=== PATIENT | female | born 1935 | race Caucasian/White ===

== ENCOUNTER 2016-05-13 13:15 | Observation (INO) | payer MEDICARE ==
[2016-05-13] VITALS (9 sets, daily range): BP systolic 109–198; BP diastolic 60–95; PULSE 65–90; RESP 17–18; TEMP 97.8–98.1; O2SAT 94–97
[~2016-05-13] VITALS: Ht 167.6 cm; Wt 75.0 kg
[~2016-05-13 13:15] MED LIST: ASPI81TA82 PO; ATOR80TA PO; CARV3.12 PO; CLOP75 PO; NITR.4 SL; OMEP20TA39 PO
[2016-05-13] MEDS ORDERED: ASPIRIN 81 MG CHEW TAB PO ONE (13:45)
[2016-05-13] MEDS ORDERED: SODIUM CHLORIDE 0.9% FLUSH 10 ML FLUSH IVF PRN (13:45)
--- NOTE | 2016-05-13 14:00 | PD ---
HPI Chief Complaint: Chest Pain Time Seen by Provider: 13:25 Travel History International Travel<30 days: No Contact w/Intl Traveler<30days: No Traveled to known affect area: No History of Present Illness HPI This is a 80-year-old female history of hypertension, coronary artery disease, hyperlipidemia, who presents today with 2 episodes of chest pain. Patient states that today she was helping her demented ties shoes when she experienced a substernal achy pressure-like sensation. She stated lasted very briefly. She states that she then went to the store she experienced another episode. She states she took 2 nitroglycerin which immediately resolved the pain. She reported nausea. No diaphoresis but she has been more sweaty than normal. She denies any shortness of breath. She does report that the pain was achy and across her precordium with radiation under her rib cages bilaterally. PFSH Past Medical History AAA: Yes (3.8 CM?) Arthritis: Yes (OSTEOARTHRITIS) Heart Rhythm Problems: Yes (occassional PVC's ) Cardiac Catheterization: Yes Cardiovascular Problems: Yes (BYPASS, STENTS) High Cholesterol: Yes Chest Pain: Yes (STABLE AND UNSTABLE) Congestive Heart Failure: No Cerebrovascular Accident: Yes (TIA X1) Coronary Artery Disease: Yes Diabetes: No GERD: Yes Heparin Induced Thrombocytopen: No Hypertension: Yes ?: Not Menopausal: Yes : 9 Para: 6 Miscarriage: 3 Dilation and Curettage (D&C): Yes Past Surgical History Cardiac Surgery: Yes Coronary Artery Bypass Graft: Yes (2003) Coronary Stent: Yes (STENTS: 2006, 2008, 2009, 2016 (X4 TOTAL)) Eye Surgery: Yes (BILATERAL CATARACTS) Genitourinary Surgery: Yes (BLADDER RECTOCELE REPAIR) Hysterectomy: Yes (PARTIAL) Joint Replacement: Yes (PARTIAL BILATERAL KNEE REPLACEMENTS 2002) Family History Family Myocardial Infarction: No Social History Alcohol Use: No Tobacco Use: No Substance Use: No Allergies-Medications (Allergen,Severity, Reaction): Coded Allergies: Tylenol (Verified Allergy, Severe, Hypertension, 05/15/15) Reported Meds & Prescriptions Reported Meds & Active Scripts Active Reported Omeprazole 20 Mg Tab 20 Mg PO DAILY Nitrostat SL (Nitroglycerin) 0.4 Mg Subl 0.4 Mg SL DIRECTED PRN 1 tablet under the tongue as needed for chest pain. Repeat every 5 minutes for a total of 3 DOSES or call 911 if NO relief. Plavix (Clopidogrel Bisulfate) 75 Mg Tab 75 Mg PO DAILY Coreg (Carvedilol) 3.125 Mg Tab 3.125 Mg PO BID Atorvastatin (Atorvastatin Calcium) 80 Mg Tab 80 Mg PO HS Aspirin Adult Low Strength (Aspirin) 81 Mg Tabdr 81 Mg PO DAILY Review of Systems Except as stated in HPI: all other systems reviewed are Neg General / Constitutional: No: Fever, Chills Eyes: No: Blurred Vision, Photophobia HENT: No: Headaches, Vertigo Cardiovascular: Positive: Chest Pain or Discomfort, No: Palpitations, Irregular Rhythm Gastrointestinal: Positive: Nausea, No: Vomiting, Abdominal Pain Musculoskeletal: Positive: Pain (under her rib cage bilaterally.), No: Weakness Neurologic: No: Weakness, Headache, Change in Mentation Physical Exam Narrative GENERAL: Well-nourished, well-developed patient. SKIN: Focused skin assessment warm/dry. HEAD: Normocephalic/atraumatic. EYES: No scleral icterus. No injection or drainage. NECK: Supple, trachea midline. CARDIOVASCULAR: Regular rate and rhythm without murmurs, gallops, or rubs. RESPIRATORY: Breath sounds equal bilaterally. No accessory muscle use. GASTROINTESTINAL: Abdomen soft, non-tender, nondistended. MUSCULOSKELETAL: No cyanosis, or edema. NEUROLOGICAL: Awake and alert. Cranial nerves II through XII intact. Motor grossly within normal limits. Five out of 5 muscle strength in all muscle groups. Normal speech. Data Data Last Documented VS Vital Signs Date Time Temp Pulse Resp B/P Pulse Ox O2 Delivery O2 Flow Rate FiO2 05/13/16 13:37 98 Nasal Cannula 2 05/13/16 13:37 78 172/79 151/81 05/13/16 13:37 18 05/13/16 13:16 97.8 Orders Electrocardiogram (05/13/16 ) Basic Metabolic Panel (Bmp) (05/13/16 13:33) Ckmb (Isoenzyme) Profile (05/13/16 13:33) Complete Blood Count With Diff (05/13/16 13:33) Magnesium (Mg) (05/13/16 13:33) Prothrombin Time / Inr (Pt) (05/13/16 13:33) Act Partial Throm Time (Ptt) (05/13/16 13:33) Troponin I (05/13/16 13:33) Chest, Single Ap (05/13/16 13:33) Ecg Monitoring (05/13/16 13:33) Bilateral Bp Monitoring (05/13/16 13:33) Iv Access Insert/Monitor (05/13/16 13:33) Oximetry (05/13/16 13:33) Oxygen Administration (05/13/16 13:33) Aspirin Chew (Aspirin Chew) (05/13/16 13:45) Sodium Chloride 0.9% Flush (Ns Flush) (05/13/16 13:45) CKMB (05/13/16 13:48) CKMB% (05/13/16 13:48) Admit Order (Ed Use Only) (05/13/16 15:15) Labs Laboratory Tests Test 05/13/16 13:48 White Blood Count 6.8 TH/MM3 Red Blood Count 4.74 MIL/MM3 Hemoglobin 14.4 GM/DL Hematocrit 41.5 % Mean Corpuscular Volume 87.6 FL Mean Corpuscular Hemoglobin 30.4 PG Mean Corpuscular Hemoglobin 34.7 % Concent Red Cell Distribution Width 13.4 % Platelet Count 207 TH/MM3 Mean Platelet Volume 7.7 FL Neutrophils (%) (Auto) 54.0 % Lymphocytes (%) (Auto) 31.0 % Monocytes (%) (Auto) 10.7 % Eosinophils (%) (Auto) 3.4 % Basophils (%) (Auto) 0.9 % Neutrophils # (Auto) 3.7 TH/MM3 Lymphocytes # (Auto) 2.1 TH/MM3 Monocytes # (Auto) 0.7 TH/MM3 Eosinophils # (Auto) 0.2 TH/MM3 Basophils # (Auto) 0.1 TH/MM3 CBC Comment DIFF FINAL Differential Comment Prothrombin Time 10.6 SEC Prothromb Time International 1.0 RATIO Ratio Activated Partial 23.6 SEC Thromboplast Time Sodium Level 139 MEQ/L Potassium Level 4.4 MEQ/L Chloride Level 107 MEQ/L Carbon Dioxide Level 26.4 MEQ/L Anion Gap 6 MEQ/L Blood Urea Nitrogen 21 MG/DL Creatinine 0.99 MG/DL Estimat Glomerular Filtration 54 ML/MIN Rate Random Glucose 98 MG/DL Calcium Level 9.3 MG/DL Magnesium Level 2.1 MG/DL Total Creatine Kinase 126 U/L Creatine Kinase MB 1.9 NG/ML Troponin I LESS THAN 0.02 NG/ML [facility] Medical Decision Making Medical Screen Exam Complete: Yes Emergency Medical Condition: Yes Differential Diagnosis ACS versus muscle skeletal pain versus peptic ulcer disease Narrative Course This is an 80-year-old female history coronary artery disease, hypertension, hyperlipidemia, who presents with 2 episodes of chest pain. She had an episode earlier when she was tying her husbands shoes. She states that she didn't make much of that however when she was at the store she had a second episode. She states that it persisted for longer than the first and she used 2 nitroglycerin to resolve her pain. EKG shows no acute ST elevation or depression. Cardiac enzymes are within normal limits. Given her history and her use of nitroglycerin, she will be admitted to the chest pain center for rule out protocol. She does see Dr. 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 Diagnosis Primary Impression: Chest pain Additional Impressions: Hypertension Hyperlipidemia Coronary artery disease Seamus Kelsey MD May 13, 2016 13:59
[2016-05-13 14:02] LABS: AUTOMATED NEUTROPHIL # 3.7 TH/MM3 (1.8-7.7); BASOPHIL # 0.1 TH/MM3 (0-0.2); BASOPHIL % 0.9 % (0.0-2.0); EOSINOPHIL # 0.2 TH/MM3 (0-0.4); EOSINOPHIL % 3.4 % (0.0-4.0); HEMATOCRIT 41.5 % (35.0-46.0); HEMO FLAGS DIFF FINAL; LYMPHOCYTE # 2.1 TH/MM3 (1.0-4.8); MEAN CELL VOLUME 87.6 FL (80.0-100.0); MEAN CORPUSCULAR HEMOGLOBIN 30.4 PG (27.0-34.0); MEAN CORPUSCULAR HGB CONC 34.7 % (32.0-36.0); MONO % 10.7 % (0.0-8.0); PLATELET COUNT 207 TH/MM3 (150-450); RED BLOOD COUNT 4.74 MIL/MM3 (4.00-5.30); RED CELL DISTRIBUTION WIDTH 13.4 % (11.6-17.2); WHITE BLOOD COUNT 6.8 TH/MM3 (4.0-11.0)
[2016-05-13 14:14] LABS: APTT (PATIENT) 23.6 SEC (24.3-30.1); PROTHROMBIN TIME - PATIENT 10.6 SEC (9.8-11.6)
--- NOTE | 2016-05-13 14:19 | RADRPT ---
EXAM DATE/TIME: 05/13/2016 13:36 [facility] COMPARISON: CHEST SINGLE AP, May 15, 2015, 11:31. INDICATIONS : Chest pain, shortness of breath. MEDICAL HISTORY : Hypertension. Gastroesophageal reflux disease. SURGICAL HISTORY : CABG. Craniotomy. ENCOUNTER: Initial ACUITY: 1 day PAIN SCORE: 8/10 LOCATION: cranial midline FINDINGS: A single view of the chest demonstrates the lungs to be symmetrically aerated without evidence of mas s, infiltrate or effusion. The cardiomediastinal contours are unremarkable. Osseous structures are intact. Prior median sternotomy with 7 intact sternal wire sutures. CONCLUSION: The lungs are clear. Suman Haq MD on May 13, 2016 at 14:17 Board Certified Radiologist. This report was verified electronically.
[2016-05-13 14:23] LABS: CREATINE KINASE 126 U/L (26-192)
[2016-05-13 14:25] LABS: ANION GAP 6 MEQ/L (5-15); BICARBONATE 26.4 MEQ/L (21.0-32.0); BLOOD UREA NITROGEN 21 MG/DL (7-18); CHLORIDE 107 MEQ/L (98-107); GLOMERULAR FILTRATION RATE 54 ML/MIN (>89); MAGNESIUM 2.1 MG/DL (1.5-2.5); POTASSIUM 4.4 MEQ/L (3.5-5.1); SODIUM (NA) 139 MEQ/L (136-145)
[2016-05-13 14:35] LABS: CKMB 1.9 NG/ML (0.5-3.6)
[2016-05-13] MEDS ORDERED: NITR0.4S SL (15:41)
[2016-05-13] MEDS ORDERED: ASPI1TAB91 PO (15:41)
[2016-05-13] MEDS ORDERED: ATOR1TAB18 PO (15:41)
[2016-05-13] MEDS ORDERED: OMEP20TA PO (15:41)
[2016-05-13] MEDS ORDERED: PLAV75TA29 PO (15:41)
[2016-05-13] MEDS ORDERED: CARV3.125 PO (15:41)
[2016-05-13] MEDS ORDERED: SODIUM CHLORIDE 0.9% FLUSH 5 ML FLUSH IVF PRN (16:00)
[2016-05-13] MEDS ORDERED: ONDANSETRON HCL 4 MG/2 ML VIAL IV PRN (16:00)
--- NOTE | 2016-05-13 16:11 | HHI.HP ---
[facility] Primary Care Physician Sebastian Dang MD, PhD Chief Complaint Chest pain History of Present Illness This is a 80-year-old female history of CAD with a four-vessel bypass about 14 years ago as well as 4 stents since then, most recently March 2015 which time she had a stent to the LAD performed by her milker machine Dr. Syd Castle. She presents with a complaint of developing a sharp pain/pressure while bending over to tie her shoelaces. The symptoms last about 5 minutes. She was short of breath with them as well. She says ignored the symptoms and then later in the day went shopping with her . While doing some shopping she developed a severe stabbing discomfort in the center of her chest that made her short of breath. No nausea. A little bit diaphoresis. She then states that she has been sweating quite a bit over last few days which concerned her because that was the only symptom she had when she needed her bypass 14 years ago. She states the symptoms that she had today are not similar to the discomfort she had before when needing stenting. She also states that she has an abdominal aortic aneurysm which has been followed for a few years and was recently that she also had a thoracic aortic aneurysm but does not know where the imaging was done or who ordered imaging. She saw her milker machine last week for a checkup and was told to keep a journal of her vital signs as her blood pressures have been a little bit more difficult to control recently. Patient also is concerned of her . She states he has severe dementia and would not be comfortable with him being alone. Her daughter can stay with him tonight. She states that he will need to stay with her. Review of Systems General: Patient denies fevers, chills recent, and recent travel HEENT: Patient denies headache, sore throat, difficulty swallowing. Cardiovascular: She has had diaphoresis. Has the chest discomfort as mentioned above. Denies sensation of heart beating rapidly or irregularly. No syncope. Respiratory: Denies shortness of breath or inspirational chest discomfort. Denies coughing wheezing or hemoptysis. GI: Patient denies nausea, vomiting, diarrhea, abdominal pain, bloody stools. Musculoskeletal: Patient denies joint pain or edema. Denies calf pain or edema. Neurovascular: Patient denies numbness, tingling, weakness in extremities. Denies headache. Endocrine: Denies polyuria and polydipsia. Hematologic: Denies easy bruising. Skin: Denies rash or itching. Past Family Social History Allergies: Coded Allergies: Tylenol (Verified Allergy, Severe, Hypertension, 05/15/15) Past Medical History CAD. Hypertension, hyperlipidemia, history of abdominal and thoracic aortic aneurysm. Most recent scan on her records dated 05/15/15 state fusiform aneurysmal change of the descending thoracic aorta and infrarenal abdominal aorta measuring 4.6 and 4.1 cm respectively. Past Surgical History CABG. Cardiac catheterizations. Cataracts. Bilateral knees. Hysterectomy. Reported Medications Reported Meds & Active Scripts Active Reported Omeprazole 20 Mg Tab 20 Mg PO DAILY Nitrostat SL (Nitroglycerin) 0.4 Mg Subl 0.4 Mg SL DIRECTED PRN 1 tablet under the tongue as needed for chest pain. Repeat every 5 minutes for a total of 3 DOSES or call 911 if NO relief. Plavix (Clopidogrel Bisulfate) 75 Mg Tab 75 Mg PO DAILY Coreg (Carvedilol) 3.125 Mg Tab 3.125 Mg PO BID Atorvastatin (Atorvastatin Calcium) 80 Mg Tab 80 Mg PO HS Aspirin Adult Low Strength (Aspirin) 81 Mg Tabdr 81 Mg PO DAILY Active Ordered Medications Current Medications Medications (Trade) Dose Ordered Sig/Tonia Route Start Time Stop Time Status Last Admin (Lipitor) 80 mg HS PO 05/13/16 21:00 (Coreg) 3.125 mg BID PO 05/13/16 21:00 (Protonix) 20 mg DAILY PO 05/13/16 16:15 (NS Flush) 2 ml UNSCH PRN IVF 05/13/16 16:00 (NS Flush) 2 ml BID IVF 05/13/16 21:00 (Zofran Inj) 4 mg Q6H PRN IV 05/13/16 16:00 (Aspirin) 325 mg DAILY PO 05/14/16 09:00 Family History Family history of CAD. Social History Patient denies tobacco abuse, denies alcohol or illicit drug use. Physical Exam Vital Signs Vital Signs Date Time Temp Pulse Resp B/P Pulse Ox O2 Delivery O2 Flow Rate FiO2 05/13/16 13:37 98 Nasal Cannula 2 05/13/16 13:37 78 172/79 151/81 05/13/16 13:37 18 97 Nasal Cannula 2 05/13/16 13:33 76 18 Nasal Cannula 2 05/13/16 13:16 97.8 90 17 156/95 96 Physical Exam GENERAL: This is a well-nourished, well-developed patient, in no apparent distress. Patient speaks in clear complete sentences. Patient is pleasant. HEENT: Head is atraumatic and normocephalic. Neck is supple without lymphadenopathy and trachea is midline. No JVD or carotid bruits. CARDIOVASCULAR: Regular rate and rhythm without murmurs, gallops, or rubs. RESPIRATORY: Clear to auscultation. Breath sounds equal bilaterally. No wheezes , rales, or rhonchi. Chest wall is nontender. No use of accessory muscles. GASTROINTESTINAL: Abdomen is nontender, nondistended. Abdomen soft. No obvious pulsatile mass or bruit. No CVA tenderness. Strong femoral pulses bilaterally. Normal bowel sounds in all quadrants. MUSCULOSKELETAL: Patient is moving upper and lower extremities freely. No calf tenderness or edema, no Homans sign. Strong pulses in upper and lower extremities. NEUROLOGICAL: Patient is alert and oriented. Cranial nerves 2-12 are grossly intact. No focal deficits and speech is clear. SKIN: No rash and turgor is normal. Laboratory Laboratory Tests Test 05/13/16 13:48 White Blood Count 6.8 Red Blood Count 4.74 Hemoglobin 14.4 Hematocrit 41.5 Mean Corpuscular Volume 87.6 Mean Corpuscular Hemoglobin 30.4 Mean Corpuscular Hemoglobin 34.7 Concent Red Cell Distribution Width 13.4 Platelet Count 207 Mean Platelet Volume 7.7 Neutrophils (%) (Auto) 54.0 Lymphocytes (%) (Auto) 31.0 Monocytes (%) (Auto) 10.7 Eosinophils (%) (Auto) 3.4 Basophils (%) (Auto) 0.9 Neutrophils # (Auto) 3.7 Lymphocytes # (Auto) 2.1 Monocytes # (Auto) 0.7 Eosinophils # (Auto) 0.2 Basophils # (Auto) 0.1 CBC Comment DIFF FINAL Differential Comment Prothrombin Time 10.6 Prothromb Time International 1.0 Ratio Activated Partial 23.6 Thromboplast Time Sodium Level 139 Potassium Level 4.4 Chloride Level 107 Carbon Dioxide Level 26.4 Anion Gap 6 Blood Urea Nitrogen 21 Creatinine 0.99 Estimat Glomerular Filtration 54 Rate Random Glucose 98 Calcium Level 9.3 Magnesium Level 2.1 Total Creatine Kinase 126 Creatine Kinase MB 1.9 Troponin I LESS THAN 0.02 Result Diagram: 05/13/16 1348 05/13/16 1348 Assessment and Plan Assessment and Plan * Chest pain: Patient has history of CAD. She will continue to have serial cardiac enzymes and EKGs for ruling out purposes. She will be seen by Dr. Johnson of cardiology in the chest pain center in the morning. We will also get a CTA of the abdominal and thoracic aorta to evaluate her aneurysms. Further plan pending results of her CT imaging studies, labs, and Dr. Johnson's evaluation. * History of thoracic and abdominal aneurysms: We'll reassess with CT imagery. * Hypertension: Continue current medications and have Catapres when necessary. * Hyperlipidemia: Continue current medications. Patient is stable at this time. She is agreeable to this plan. Tayo Ng May 13, 2016 16:11
[2016-05-13] MEDS ORDERED: LISINOPRIL 5 MG TAB PO ONE (16:15)
[2016-05-13] MEDS ORDERED: cloNIDine HCL 0.1 MG TAB PO PRN (16:15)
[2016-05-13] MEDS ORDERED: IOHEXOL 350 MG/ML 10 ML VIAL (for RAD DIAG) IV ONE (16:47)
--- NOTE | 2016-05-13 17:20 | RADRPT ---
EXAM DATE/TIME: 05/13/2016 16:34 [facility] COMPARISON: CTA THORACIC ABDOMINAL AORTA W 3D RECON, May 15, 2015, 14:02. INDICATIONS : Chest pain today with history of multiple aneurysms; evaluate for dissection. IV CONTRAST: 75 cc Omnipaque 350 (iohexol) IV RADIATION DOSE: 7.68 CTDIvol (mGy) MEDICAL HISTORY : Hypertension. Aneurysm, abdominal. SURGICAL HISTORY : CABG Abdominal aortic aneurysm repair. ENCOUNTER: Initial ACUITY: 1 day PAIN SCALE: 6/10 LOCATION: chest TECHNIQUE: Volumetric scanning was performed using a multi-row detector CT scanner. The data was post processed with a variety of visualization algorithms including full volume maximum intensity projection, multi -planar sliding thin slab reformation, curved planar reformation, and surface rendering techniques. Using automated exposure control and adjustment of the mA and/or kV according to patient size, radiat ion dose was kept as low as reasonably achievable to obtain optimal diagnostic quality images. FINDINGS: LUNGS: There is no consolidation or pneumothorax. No concerning pulmonary nodule is visualized. No pleural fluid is present. Minimal dependent atelectatic changes on the right MEDIASTINUM: No abnormally enlarged lymph nodes by CT criteria. No axillary or hilar abnormalities are identified. Atherosclerotic calcification of the coronary arteries. 1.1 cm low density nodule in the right lobe of the thyroid, unchanged ABDOMEN: The liver and spleen are free of focal defects. The gallbladder and pancreas demonstrate no abnormali ty. The adrenal glands are normal. Bilateral renal cortical scarring. Diverticular disease of the toño cending and sigmoid colon without diverticulitis. Small paraumbilical hernia measures approximately 1 .5 cm in diameter and only contains fat. PELVIS: No evidence of free fluid or pelvic mass. No abnormally enlarged inguinal or retroperitoneal lymph no toño are present. The bladder is unremarkable. THORACIC AORTA: Stable aneurysm of the descending thoracic aorta measuring 4.7 x 3.8 cm. Bovine arch. Ascending thora cic aorta is normal in caliber. No dissection. ABDOMINAL AORTA: Infrarenal abdominal aortic aneurysm with mural thrombus measures 3.8 x 4.4 cm and is unchanged. PELVIC VESSELS: The internal iliac and external iliac vessels are patent without aneurysm or stenosis. CONCLUSION: 1. Stable aneurysms of the descending thoracic and infrarenal abdominal aorta as detailed above. Both measure approximately 4.5 cm in diameter. 2. No dissection. 3. Stable 1.1 cm hypodense nodule in the right lobe of the thyroid. 4. Diverticular disease of the sigmoid colon without diverticulitis. 5. Bovine arch. 6. Stable renal cortical scarring. Stable periumbilical hernia which only contains fat. Shravan Johnson MD on May 13, 2016 at 17:08 Board Certified Radiologist. This report was verified electronically.
[2016-05-13] MEDS: PANTOPRAZOLE SOD 20 MG DELAYED RELEASE TAB PO SCH (17:29)
[2016-05-13 17:49] LABS: CREATINE KINASE 99 U/L (26-192)
[2016-05-13] MEDS: CARVEDILOL 3.125 MG TAB PO SCH (20:06)
[2016-05-13] MEDS: SODIUM CHLORIDE 0.9% FLUSH 5 ML FLUSH IVF SCH (20:20)
[2016-05-13] MEDS ORDERED: ATORVASTATIN 80 MG TAB PO SCH (21:00)
[2016-05-13 21:36] LABS: CREATINE KINASE 96 U/L (26-192)
[2016-05-14 00:49] VITALS: BP 134/75; PULSE 71; RESP 19; TEMP 98; O2SAT 94
[2016-05-14 04:25] VITALS: BP 130/72; PULSE 70; RESP 19; TEMP 98; O2SAT 94
[2016-05-14 08:00] VITALS: BP 146/74; PULSE 69; RESP 20; TEMP 97.6; O2SAT 95
[2016-05-14] MEDS ORDERED: ASPIRIN 325 MG TAB PO SCH (09:00)
[2016-05-14] MEDS ORDERED: REGADENOSON INJ 0.4 MG/5 ML SYR ONE (09:44)
[2016-05-14] MEDS: SODIUM CHLORIDE 0.9% FLUSH 5 ML FLUSH IVF SCH (11:06)
[2016-05-14] MEDS: PANTOPRAZOLE SOD 20 MG DELAYED RELEASE TAB PO SCH (11:06)
[2016-05-14] MEDS: CARVEDILOL 3.125 MG TAB PO SCH (11:06)
--- NOTE | 2016-05-14 11:13 | RADRPT ---
EXAM DATE/TIME: 05/14/2016 09:25 [facility] COMPARISON: MYOCARDIAL PERF PHARM SPECT, GATED W/EF, May 16, 2015, 8:45. INDICATIONS : Mid chest pain for one day with shortness of breath. Angina. Coronary artery disease. DOSE: 25.4 mCi Tc99m Myoview at stress. 8.1 mCi Tc99m Myoview at rest. 0.4 mg Lexiscan STRESS SYMPTOMS: Chest tightness and nausea. EJECTION FRACTION: 70% MEDICAL HISTORY : Hypertension. SURGICAL HISTORY : CABG Coronary artery stent. Abdominal aortic aneurysm repair. ENCOUNTER: Initial ACUITY: 1 day PAIN SCALE: 7/10 LOCATION: Midsternal chest TECHNIQUE: The patient underwent pharmacologic stress with infusion of prescribed dose. Continuous ECG tracing was monitored during stress. Gated SPECT imaging was performed after stress and conventional SPECT i maging was performed at rest. The examination was performed on a SPECT/CT scanner, both attenuation and non-corrected datasets were reviewed. FINDINGS: DISTRIBUTION: The maximum perfused segment at stress is in the septal wall. PERFUSION STUDY: The pattern of perfusion at stress is within normal limits. GATED STUDY: There is intact wall motion and thickening without hypokinetic or dyskinetic segments. CONCLUSION: 1. No reversible perfusion defect to suggest stress-induced myocardial ischemia identified. RISK CATEGORY: Low (<1% Annual Mortality Rate) Elliott Tubbs MD on May 14, 2016 at 11:11 Board Certified Radiologist. This report was verified electronically.
--- NOTE | 2016-05-14 11:53 | HHI.DCPOC ---
Discharge Care Plan Diagnosis: (1) Atypical chest pain (2) Hx of coronary artery disease (3) Hypertension Goals to Promote Your Health * To prevent worsening of your condition and complications * To maintain your health at the optimal level Directions to Meet Your Goals Take your medications as prescribed Follow your dietary instruction Follow activity as directed Keep your appointments as scheduled Take your immunizations and boosters as scheduled If your symptoms worsen call your PCP, if no PCP go to Urgent Care Center or Emergency Room Smoking is Dangerous to Your Health. Avoid second hand smoke Call the 24-hour hour crisis hotline for domestic abuse at Carmen AndersonP May 14, 2016 11:53
[2016-05-14] MEDS ORDERED: LISI-519 PO (11:55)
[2016-05-14 12:00] VITALS: BP 146/72; PULSE 73; RESP 20; TEMP 97.8; O2SAT 92
--- NOTE | 2016-05-14 15:21 | TR ---
Date Performed: 05/14/2016 Time Performed: 09:56:41 DOCTOR: Cedrick Johnson DRUG LIST: CLINICAL HISTORY: CHEST PAIN REASON FOR TEST: CHEST PAIN REASON FOR ENDING: OBSERVATION: CONCLUSION: Lexiscan stress test was performed under standard four minute protocol. Radionuclid e was injected one minute prior to ending the test. No electrocardiographic abormalities were present to suggest ischemia. Nuclear imaging and interpretation are pending. COMMENTS:
--- NOTE | 2016-05-14 15:22 | EKG ---
Date Performed: 05/13/2016 Time Performed: 19:56:06 PTAGE: 80 years EKG: Sinus rhythm NONSPECIFIC T-WAVE ABNORMALITY BORDERLINE ECG PREVIOUS TRACING : 05/13/2016 16.26 Since previous tracing, no significant change noted DOCTOR: Cedrick Johnson Interpretating Date/Time 05/14/2016 15:21:26
--- NOTE | 2016-05-14 15:22 | EKG ---
Date Performed: 05/13/2016 Time Performed: 16:26:04 PTAGE: 80 years EKG: Sinus rhythm NORMAL ECG PREVIOUS TRACING : 05/13/2016 13.33 Since previous tracing, no significant change noted DOCTOR: Cedrick Johnson Interpretating Date/Time 05/14/2016 15:21:49
--- NOTE | 2016-05-14 15:25 | EKG ---
Date Performed: 05/13/2016 Time Performed: 13:33:06 PTAGE: 80 years EKG: Sinus rhythm WITH OCCASIONAL SUPRAVENTRICULAR PREMATURE COMPLEXES BORDERLINE ECG PREVIOUS TRACING : 05/15/2015 19.53 Since previous tracing, no significant change noted DOCTOR: Cedrick Johnson Interpretating Date/Time 05/14/2016 15:23:11
== END 2016-05-14 12:59 | disposition home or self-care (01) ==
LOC: NEPC 13:15 → NEDA 15:17 → NEPHCDU 17:03
PROVIDERS: ADMIT Internal Medicine Cardiovascular Disease; ATTEND Internal Medicine Cardiovascular Disease
DX: R07.9 Chest pain, unspecified (principal); I10 Essential (primary) hypertension; E78.5 Hyperlipidemia, unspecified; I25.10 Atherosclerotic heart disease of native coronary artery without angina pectoris; K21.9 Gastro-esophageal reflux disease without esophagitis; E78.00 Pure hypercholesterolemia, unspecified; Z95.1 Presence of aortocoronary bypass graft; Z95.5 Presence of coronary angioplasty implant and graft; Z88.8 Allergy status to other drugs, medicaments and biological substances; Z79.02 Long term (current) use of antithrombotics/antiplatelets; Z79.82 Long term (current) use of aspirin; Z96.653 Presence of artificial knee joint, bilateral; Z86.73 Personal history of transient ischemic attack (TIA), and cerebral infarction without residual deficits; Z86.79 Personal history of other diseases of the circulatory system
CPT/HCPCS: 71010; 71275; 74174; 78452; 80048; 82550; 82552; 83735; 84484; 85025; 85610; 85730; 93005; 93017; 99285; A9502; G0378; J2785; Q9967